=== PATIENT | female | born 1950 | race Caucasian/White ===

== ENCOUNTER 2018-01-18 10:04 | Emergency (ER) | payer BC, OTHER ==
[2018-01-18 10:10] VITALS: BP 137/61; PULSE 62; TEMP 99; BMI 27.9
--- NOTE | 2018-01-18 10:13 | PDOC ---
History of Present Illness - General Chief Complaint: Pain, Acute Stated Complaint: LEFT LEG PAIN/SWELLING Time Seen by Provider: 01/18/18 10:13 History Source: Patient Exam Limitations: No Limitations - History of Present Illness Initial Comments: 01/18/18 10:14 Ms Regalado is a 67-year-old female who presents emergency department with a complaint of left leg pain. Patient states she has a past medical history of atrial fibrillation (on Toprol- XL, no anticoagulants, recently met with her medical language specialist) (, history of L4/L5 radicular pain/sciatica. Patient states she's had 2 episodes of sciatica which cause severe left lower extremity pain. She has noted over the past few months mild left lower extremity pain which is responsive to Motrin. Recently she's noticed pain behind the left knee, left calf. Difficulty getting out of her car for example due to a sensation of weakness. She did fall a few days ago and injured her right knee. Pain currently is not severe. She has no pain radiating down the leg. She is able to move her leg but noticed increased clumsiness or weakness. She notices no upper extremity weakness. She notices no visual changes, slurring of her speech, no cranial nerve deficits. PMH: Afib, Sciatia, Breast CT PSH: Partial Mastectomy Meds: Toprol XL ALL: NKDA Social: Social Alcohol, Denies drug use FH: Non contributory GENERAL/CONSTITUTIONAL: No: fever, chills, weakness, loss of appetite. HEAD, EYES, EARS, NOSE AND THROAT: No: change in vision, ear pain, discharge, sore throat, throat swelling. CARDIOVASCULAR: No: chest pain, lightheadedness, palpitations, syncope RESPIRATORY: No: cough, shortness of breath, wheezing, hemoptysis, stridor. GASTROINTESTINAL: No: nausea, vomiting, diarrhea, abdominal cramping, rectal bleeding, constipation. GENITOURINARY: No: dysuria, hematuria, frequency, urgency, flank pain. MUSCULOSKELETAL: YEs: back pain, left leg weakness No: back pain, neck pain, joint pain, muscle swelling or pain SKIN: No: lesions, pallor, rash or easy bruising. NEUROLOGIC: No: headache, vertigo, paresthesias, weakness ENDOCRINE: No: unexplained weight gain or loss HEMATOLOGIC/LYMPHATIC: No: anemia, easy bleeding, swelling nodes. GENERAL: The patient is in no acute distress. HEAD: Normal with no signs of trauma. EYES: PERRLA, EOMI, sclera anicteric, conjunctiva clear. ENT: Ears normal, nares patent, oropharynx clear without exudates. Moist mucous membranes. NECK: Normal range of motion, supple without lymphadenopathy, JVD, or masses. LUNGS: Breath sounds equal, clear to auscultation bilaterally. No wheezes, and no crackles. HEART:Regular rate and rhythm, normal S1 and S2 without murmur, rub or gallop. ABDOMEN: Soft, nontender, normoactive bowel sounds. No guarding, no rebound. No masses palpable. EXTREMITIES: Normal range of motion, no edema. No clubbing or cyanosis. No erythema, or tenderness. 2+ DP, PT Foot warm, no swelling NEUROLOGICAL: Cranial nerves II through XII grossly intact. Normal speech. No focal neurological deficits. Holds left leg against gravity, flexion and extension at hip and knee nml Meagan and plantar flexion in tact at left ankle Sensation in tact MUSCULOSKELETAL: Mild midline back tenderness to palpation, no deformities, no paraspinal tenderness Pain behind left knee and in proximal left calf SKIN: Warm, Dry, normal turgor, no rashes or lesions noted. Past History - Past Medical History Allergies/Adverse Reactions: Allergies Allergy/AdvReac Type Severity Reaction Status Date / Time LOBSTER Allergy Uncoded 01/18/18 10:11 Home Medications: Ambulatory Orders Metoprolol Succinate [Toprol Xl] 50 mg PO BID 01/18/18 Cardiac Disorders: Yes (AFIB) COPD: No - Suicide/Smoking/Psychosocial Hx Smoking History: Never smoked Hx Alcohol Use: Yes Drug/Substance Use Hx: No Substance Use Type: Alcohol *Physical Exam - Vital Signs Last Vital Signs Temp Pulse Resp BP Pulse Ox 99 F 62 18 137/61 99 01/18/18 10:04 01/18/18 10:04 01/18/18 10:04 01/18/18 10:04 01/18/18 10:04 Medical Decision Making - Medical Decision Making 01/18/18 10:21 Will do duplex No evidence of deformities to suggest fracture Possibly worsening radiculopathy Duplex negative for DVT Will refer to Dr Manzanares and Dr agarwal *DC/Admit/Observation/Transfer Diagnosis at time of Disposition: Lumbar radiculopathy - Discharge Dispostion Disposition: HOME Condition at time of disposition: Stable Decision to Admit order: No - Referrals Referrals: Deniz Mello MD, [facility] [Staff Physician] - Willie Romo MD [Staff Physician] - - Patient Instructions Printed Discharge Instructions: DI for Low Back Pain, DI for Lumbar Radiculopathy - Post Discharge Activity
== END 2018-01-18 12:34 | disposition home or self-care (01) ==
LOC: FER 10:04
DX: M54.16 Radiculopathy, lumbar region (principal); I48.91 Unspecified atrial fibrillation
CPT/HCPCS: 93971-TC; 99281-25